=== PATIENT | female | born 2005 | race African-American/Black ===

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

== ENCOUNTER 2024-08-22 16:33 | Emergency (ER) | payer BC, SELFPAY ==
[2024-08-22 16:51] VITALS: BP 100/67; PULSE 93; O2SAT 100
--- NOTE | 2024-08-22 17:41 | ED.HEATRA ---
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 She is from [place]. The patient was playing rugby today. She was running when she collided with another player and the knee of the other player struck the patient on the right side of her jaw. The patient says that she was not knocked down or knocked out. She ran a little bit further an after running a little bit further she collapsed to the ground. She was helped up and seemed okay for awhile but then fainted. At that point an ambulance was called and she was brought to the hospital. She denies any significant headache. She denies any significant neck pain. She does not have any significant pain in her neck when she moves her head. She does not feel that she had any dental injury and she does not feel that her jaw is broken. No chest pain or shortness of breath. No abdominal pain. No nausea or vomiting. Related Data Allergies Allergy/AdvReac Type Severity Reaction Status Date / Time No Known Allergies Allergy Verified 08/22/24 18:36 Review of Systems Review of Systems: Yes all other systems are reviewed and are negative [facility] Social History Social History Smoked in Last 30 Days: No Use of substances other than those prescribed or required for medical reasons: No Advance Directives: No Advance Directives Information Provided: No Do you have a plan to hurt others: No Plan Patient : No Physical Exam Vital Signs: Vital Signs: Last Vital Signs Temp 98.5 F 08/22/24 21:00 Pulse 85 08/22/24 21:00 Resp 14 08/22/24 21:00 BP 107/67 08/22/24 21:00 Pulse Ox 97 08/22/24 21:00 O2 Del Method Room Air 08/22/24 21:00 BMI result Body Mass Index 18.7 Const: Other: The patient looks as though she is an ordinarily healthy 18-year-old. She was awake and alert. She was wearing a cervical collar. She did not seem in distress. Mental status seems normal. HEENT: Other: No sign of trauma to the face or head. No raccoon eyes. No zimmerman sign. No hemotympanum. He does not seem to be any mandibular tenderness. There is good excursion of the jaw. Dentition is intact. Pharynx is normal. Eyes: Other: Pupils are round, equal, and reactive to light, extraocular movements intact, conjunctivae normal, eyes show no signs of injury or abnormality. Neck: Other: No posterior midline C-spine tenderness. Excellent range of motion of the neck without discomfort. C-spine is clinically clear. Chest: Other: No chest wall tenderness Resp: Effort & Inspection: normal respiratory effort Auscultation: clear to auscultation bilaterally Cardio: Rate: regular rate Rhythm: regular rhythm Heart sounds: S1 normal heart sound present and S2 normal heart sound present GI: Other: Abdomen is soft and nontender Skin: Other: Skin is dry and unremarkable Neuro: Other: The patient is awake, alert, oriented, appropriate. Mental status is normal. No confusion or other signs of concussion. Cranial nerves 2-12 are intact. The patient moves all extremities normally and appropriately. Gait is normal. Extrem: Other: No injuries to the extremities Medical Decision Making Medical Decision Making MDM Narrative: The patient presents to the emergency room after receiving a blow to the jaw while playing rugby. Subsequently the patient had a syncopal episode. There was no loss of consciousness at the time of the impact. The patient's mental status is currently entirely normal. Her neurological exam is normal. No signs of a skull fracture. No signs of mandibular fracture. No dental injuries. C-spine is clinically clear. An EKG was done because of the complaint of syncope. The EKG shows left axis deviation and a right bundle branch block. I suspect these are incidental findings and not related to the events today. I think the patient may be discharged back to campus. I explained that she has an abnormal EKG but I do not feel that this is a likely concerning finding. I think she may follow up with her PCP at her leisure. Independent Interpretation I performed an independent interpretation of an: EKG Interpretation: EKG at 19:10 shows normal sinus rhythm at 83 beats per minute. There is a left axis deviation and an incomplete right bundle branch block. No acute ischemic changes. Intervals are unremarkable. I suspect these changes are chronic. Discharge Plan Discharge Clinical Impression: Syncope, Head injury, Right bundle branch block, Right bundle branch block (RBBB) on electrocardiogram (ECG) Patient Disposition: Home, Self-Care Additional Instructions: At this point I think you look quite well. Please plan on resting and taking it easy tonight and tomorrow. If by Saturday you are feeling normal you may return to all normal activities. Please plan on making a follow up appointment with your [facility] to discuss this episode further. You may also discuss that your EKG shows some abnormalities. I suspect that these abnormalities are of very little significance but it would still be good to discuss them than other medical provider. Return to the emergency room if you feel significantly worse. Referrals: [facility] [Provider Group] (Head injury during a rugby, syncope, right bundle branch block) Interventions: ED Discharge Assessment Last Done: 08/22/24 21:00 Discharge Date/Time: 08/22/24 21:00 Print Language: Bulgarian
[2024-08-22 18:28] VITALS: BP 106/67; PULSE 82; RESP 14; TEMP 36.9; O2SAT 98
[2024-08-22 18:35] VITALS: BP 106/67; PULSE 71; RESP 18; TEMP 36.8; O2SAT 99; BMI 18.7
--- NOTE | 2024-08-22 19:08 | ECG_ITS ---
Test Reason : SYNCOPE Blood Pressure : / mmHG Vent. Rate : 083 BPM Atrial Rate : 083 BPM P-R Int : 136 ms QRS Dur : 106 ms QT Int : 372 ms P-R-T Axes : 072 -42 008 degrees QTc Int : 437 ms Normal sinus rhythm Left axis deviation Incomplete right bundle branch block Abnormal ECG No previous ECGs available Referred By: Darrell Lopes Electronically Signed By:Hai Farley
[2024-08-22 20:52] VITALS: BP 107/67; PULSE 85; RESP 14; TEMP 36.9; O2SAT 97
[2024-08-22 21:00] VITALS: BP 107/67; PULSE 85; RESP 14; TEMP 36.9; O2SAT 97
== END 2024-08-22 21:00 | disposition home or self-care (01) ==
PROVIDERS: Emergency Provider Emergency Medicine
DX: R55 Syncope and collapse (principal); S09.90XA Unspecified injury of head, initial encounter; W51.XXXA Accidental striking against or bumped into by another person, initial encounter; I45.19 Other right bundle-branch block; M54.2 Cervicalgia; Y93.63 Activity, rugby; Y92.39 Other specified sports and athletic area as the place of occurrence of the external cause; Y99.9 Unspecified external cause status
CPT/HCPCS: 93005; 99283; 99284

== ENCOUNTER → 2024-08-22 19:08 | Outpatient (BNV) | payer BC, SELFPAY | PROVIDERS: Emergency Provider Emergency Medicine; Visit Provider Internal Medicine Cardiovascular Disease | DX: R55 Syncope and collapse (principal); I44.4 Left anterior fascicular block; R94.31 Abnormal electrocardiogram [ECG] [EKG] | CPT/HCPCS: 93010 ==